=== PATIENT | female | born 1985 | race Asian ===

== ENCOUNTER 2021-08-28 06:10 | Emergency (ER) | payer OTHER ==
[2021-08-28 06:21] VITALS: BP 115/87; PULSE 74; TEMP 98.7; BMI 27.3
== END 2021-08-28 07:00 | disposition home or self-care (01) ==
LOC: FER 06:10
DX: J06.9 Acute upper respiratory infection, unspecified (principal)
CPT/HCPCS: 99282-25

== ENCOUNTER 2023-04-24 20:02 | Emergency (ER) | payer OTHER ==
[2023-04-24 20:28] VITALS: BP 112/75; TEMP 99; BMI 23.1
[2023-04-24 20:40] VITALS: PULSE 86; RESP 18
== END 2023-04-24 21:08 | disposition home or self-care (01) ==
LOC: FER 20:02
DX: R07.89 Other chest pain (principal); R50.9 Fever, unspecified; R05.9 Cough, unspecified; R09.81 Nasal congestion; J06.9 Acute upper respiratory infection, unspecified; Z20.822 Contact with and (suspected) exposure to COVID-19
CPT/HCPCS: 71045-TC-FY; 87651; 93005; 99285-25